=== PATIENT | female | born 1970 | race Caucasian/White ===

== ENCOUNTER 2021-05-25 14:13 | Emergency (ER) | payer OTHER ==
[~2021-05-25 14:13] MED LIST: ECOTRIN81 MG PO; ESTRACE1 MG PO; ESTRADIOL1 EAC5 TD; FISH OIL 1,0001 EACH PO; IBU800 MG PO; IBUPROFEN400 MG PO; KEFLEX CAP 500500 MG PO; KLONOPIN TAB 00.5 MG PO; NAPROXEN 250 M250 MG PO; NORCO 10-325 T1 EACH PO; NORCO 5-325 TA1 EACH PO; ROBAXIN-750750 MG PO; VITAMIN D250000 UNIT PO; VOLTAREN100 GM TP
== END 2021-05-25 15:55 | disposition home or self-care (01) ==
LOC: ER1 14:13
DX: S80.11XA Contusion of right lower leg, initial encounter (principal); S90.812A Abrasion, left foot, initial encounter; Z23 Encounter for immunization; F17.200 Nicotine dependence, unspecified, uncomplicated; W01.0XXA Fall on same level from slipping, tripping and stumbling without subsequent striking against object, initial encounter
CPT/HCPCS: 73590; 90471; 90715; 99283